=== PATIENT | female | born 1975 | race Caucasian/White ===

== ENCOUNTER 2022-05-22 00:56 | Emergency (ER) | payer OTHER ==
[~2022-05-22] VITALS: Ht 170.2 cm; Wt 104.3 kg
--- NOTE | ~2022-05-22 | EKG ---
[facility] [address] [facility] [facility] [address] [facility] [address] [facility] [place], [place] [address] Draft EKG completed, results pending confirmation PATIENT NAME: KENDELLALEXLIBRA CHEO Electrocardiogram DATE OF : 71 PHYSICIAN: PRELIMINARY REPORT #: [id number] REPORT IS CONFIDENTIAL AND NOT TO BE RELEASED WITHOUT AUTHORIZATION
--- NOTE | ~2022-05-22 | EKG ---
[facility] [address] [facility] [place], [place] [address] Draft EKG completed, results pending confirmation PATIENT NAME: KENDELLALEXLIBRA CHEO Electrocardiogram DATE OF : 71 PHYSICIAN: PRELIMINARY REPORT #: [id number] REPORT IS CONFIDENTIAL AND NOT TO BE RELEASED WITHOUT AUTHORIZATION
[~2022-05-22 00:56] MED LIST: ADVAIR 100-501 EACH INH; DOXYCYCLINE HY100 MG PO; GLUCOPHAGE XR500 MG PO; PROAIR DIGIHAL90 MCG IH
--- OUTSIDE RECORDS SUMMARY | 2022-05-22 00:58 | XMS ---
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 Naeem VISIT COUNT (12 MO.) 1 WADE Hansen TOTAL 1 NOTE: Visits indicate total known visits. ED/UCC VISIT TRACKING (12 MO.) 05/22/2022 00:[address] [facility] [place] TYPE: Emergency COMPLAINT: - OVERDOSE INPATIENT VISIT TRACKING (12 MO.) No inpatient visits to display in this time frame [id number]
[2022-05-22] MEDS ORDERED: PHENTERMINE H37.5 MG PO (01:08)
[2022-05-22] MEDS ORDERED: FENOFIBRATE145 MG PO (01:08)
[2022-05-22] MEDS ORDERED: DULOXETINE HCL30 MG PO (01:09)
== END 2022-05-23 11:45 | disposition home or self-care (01) ==
LOC: ED 00:56
DX: T43.212A Poisoning by selective serotonin and norepinephrine reuptake inhibitors, intentional self-harm, initial encounter (principal); F10.129 Alcohol abuse with intoxication, unspecified; E66.9 Obesity, unspecified; Z72.0 Tobacco use; Z79.899 Other long term (current) drug therapy
CPT/HCPCS: 36415; 80053; 81001; 83735; 84443; 84703; 85025; 87502; 93005; 93010; A9270; C9803; G0480; J2405; J3480; U0003